=== PATIENT | male | born 1985 | race American Indian/Alaskan Native ===

== ENCOUNTER 2016-07-05 00:45 | Observation (INO) | payer OTHER ==
[2016-07-05 01:10] VITALS: TEMP 98.3
--- NOTE | 2016-07-05 01:18 | ED PDOC ---
Arrival/HPI - General Chief Complaint: Substance Abuse Time Seen by Provider: 07/05/16 01:09 Historian: Patient - History of Present Illness Narrative History of Present Illness (Text): 07/05/16 01:18 Rhett Rodriges is a 30 year old male, whose past medical history includes substance abuse, who presents to the ED after taking K2 tonight. Patient states he feels fine and denies any fever, chills, chest pain, shortness of breath, nausea, vomiting, diarrhea, urinary symptoms, back pain, neck pain, headache, dizziness, or any other complaints. Time/Duration: Other (tonight) Symptom Onset: Gradual Symptom Course: Unchanged Activities at Onset: Rest, Light Past Medical History - Provider Review Nursing Documentation Reviewed: Yes - Psychiatric Hx Psychophysiologic Disorder: Yes Hx Schizophrenia: Yes Hx Substance Use: Yes (K2) Family/Social History - Physician Review Nursing Documentation Reviewed: Yes Family/Social History: No Known Family HX Smoking Status: Current Some Days Smoker Hx Alcohol Use: No Hx Substance Use: Yes (K2) Allergies/Home Meds Allergies/Adverse Reactions: Allergies No Known Allergies Allergy (Verified 07/05/16 01:03) Home Medications: Home Meds Medication Instructions Recorded Confirmed Unobtainable 07/05/16 07/05/16 Review of Systems - Physician Review All systems were reviewed & negative as marked: Yes - Review of Systems Constitutional: Normal. absent: Fevers Eyes: Normal ENT: Normal Respiratory: Normal. absent: SOB, Cough Cardiovascular: Normal. absent: Chest Pain Gastrointestinal: Normal. absent: Abdominal Pain, Diarrhea, Nausea, Vomiting Genitourinary Male: Normal. absent: Dysuria, Frequency, Hematuria, Urinary Output Changes Musculoskeletal: Normal. absent: Back Pain, Neck Pain Skin: Normal. absent: Rash Neurological: Normal. absent: Headache, Dizziness Endocrine: Normal Hemo/Lymphatic: Normal Psychiatric: Normal Physical Exam Vital Signs Reviewed: Yes Vital Signs Temp Pulse Resp BP Pulse Ox 07/05/16 05:29 62 18 97/60 L 95 07/05/16 04:13 98.3 F 60 18 97/53 L 98 07/05/16 03:22 78 18 95/60 L 95 07/05/16 01:09 98.3 F 70 16 103/66 97 Temperature: Afebrile Blood Pressure: Normal Pulse: Regular Respiratory Rate: Normal Appearance: Positive for: Well-Appearing, Non-Toxic, Comfortable Pain Distress: None Mental Status: Positive for: Alert and Oriented X 3 - Systems Exam Head: Present: Atraumatic, Normocephalic Pupils: Present: PERRL Extroacular Muscles: Present: EOMI Conjunctiva: Present: Normal Mouth: Present: Moist Mucous Membranes Neck: Present: Normal Range of Motion Respiratory/Chest: Present: Clear to Auscultation, Good Air Exchange. No: Respiratory Distress, Accessory Muscle Use Cardiovascular: Present: Regular Rate and Rhythm, Normal S1, S2. No: Murmurs Abdomen: Present: Normal Bowel Sounds. No: Tenderness, Distention, Peritoneal Signs Back: Present: Normal Inspection Upper Extremity: Present: Normal Inspection. No: Cyanosis, Edema Lower Extremity: Present: Normal Inspection. No: Edema Neurological: Present: GCS=15, CN II-XII Intact, Speech Normal Skin: Present: Warm, Dry, Normal Color. No: Rashes Psychiatric: Present: Alert, Oriented x 3, Normal Insight, Normal Concentration Medical Decision Making ED Course and Treatment: 07/05/16 01:18 Impression: 30 year old male presents after taking K2 tonight. Differential Diagnosis include but are not limited to: substance abuse Plan: -- Reassess and disposition Progress Notes: Re-evaluation Time: 06:20 Reassessment Condition: Re-examined, Improved ED OBSERVATION Discharge: Yes Date of observation admission: 07/05/16 Time of observation admission: 01:30 - Observation admission statement Patient is being placed in observation because:: substance abuse - Goals of Observation Goals of observation are:: sobriety - Progress Note Progress Note: 07/05/16 01:30 Pt resting comfortably, no new complaints. 07/05/16 03:30 Pt sleeping currently, in no acute distress. 07/05/16 05:30 Pt resting comfortably, no new complaints. - Scribe Statement The provider has reviewed the documentation as recorded by the [facility] Grant Provider Attestation: All medical record entries made by the [facility] were at my direction and personally dictated by me. I have reviewed the chart and agree that the record accurately reflects my personal performance of the history, physical exam, medical decision making, and the department course for this patient. I have also personally directed, reviewed, and agree with the discharge instructions and disposition. Disposition/Present on Arrival - Present on Arrival Any Indicators Present on Arrival: No History of DVT/PE: No History of Uncontrolled Diabetes: No Urinary Catheter: No History of Decub. Ulcer: No History Surgical Site Infection Following: None - Disposition Have Diagnosis and Disposition been Completed?: Yes Diagnosis: Substance abuse Disposition: HOME/ ROUTINE Disposition Time: 06:21 Condition: GOOD
[2016-07-05 03:22] VITALS: RESP 18
[2016-07-05 06:29] VITALS: BP 102/60; PULSE 77; O2SAT 97
== END 2016-07-05 06:58 | disposition home or self-care (01) ==
LOC: ED 00:45 → EROBSV 01:30
PROVIDERS: ADMIT Emergency Medicine; ATTEND Emergency Medicine
DX: F19.10 Other psychoactive substance abuse, uncomplicated (principal); F17.210 Nicotine dependence, cigarettes, uncomplicated
CPT/HCPCS: 99284; G0378